=== PATIENT | female | born 1990 | race Caucasian/White ===

== ENCOUNTER 2022-04-20 05:13 | Inpatient (IN) ==
[2022-04-20] MEDS ORDERED: CITRIC ACID/SODIUM CITRATE 15 ML UDC PO SCH (06:00)
[2022-04-20] MEDS ORDERED: LACTATED RINGER'S 1,000 ML IV SCH ×2 (06:30→13:02)
[2022-04-20] MEDS ORDERED: ceFAZolin 2000MG 2,000 MG/15 ML SYR IV SCH (06:30)
[2022-04-20 06:51] LABS: Basophils # (auto) 0.02 K/uL (0-0.2); Basophils % (auto) 0.4 %; Eosinophils # (auto) 0.01 K/uL (0-0.50); Eosinophils % (auto) 0.2 %; Hematocrit (blood only) 29.3 % (34.1-44.9); Hemoglobin 9.5 g/dl (12.0-16.0); Immature Granulocytes # (auto) 0.07 K/uL (0.00-0.02); Immature Granulocytes % (auto) 1.2 %; Lymphocytes # (auto) 1.33 K/uL (1.2-3.4); Lymphocytes % (auto) 23.5 %; Mean Corpuscular Hemoglobin 28.4 pg (25.0-34.0); Mean Corpuscular Hgb Conc 32.4 g/dL (32.0-36.0); Mean Corpuscular Volume 87.5 fL (80.0-100.0); Mean Platelet Volume 11.3 fL (9.4-12.3); Monocytes # (auto) 0.48 K/uL (0.24-0.82); Monocytes % (auto) 8.5 %; Neutrophils # (auto) 3.76 K/uL (1.4-6.5); Neutrophils % (auto) 66.2 %; Platelet Count 215 K/uL (130-400); RDW Coefficient of Variation 19.3 % (11.5-14.5); RDW Standard Deviation 61.1 fL (36.4-46.3); Red Blood Count 3.35 M/uL (3.93-5.22); White Blood Count 5.67 K/ul (4.8-10.8)
--- NOTE | 2022-04-20 07:39 | Labor Progress Brief Note ---
Date of Service April 20, 2022 Subjective Patient called to notify me at 0430 of SROM at home. Came in and was evaluated by L&D RN and found to have minimal overt signs of LOF, but nitrazine of a small amount of wetness on her pad was equivocal, and amnisure was positive. She is scheduled for repeat CS on 04/24, in just a few days. Currently she has mild irregular contractions, nothing painful; good FM and no VB. She is noted to have URI symptoms which have been present since almost 8 weeks ago and has repeatedly tested COVID-negative (she is vaccinated), plus her and son are currently known positive for Parainfluenza virus per testing at their respective PCP offices. There are no new developments in her URI symptoms, which have been similar for days if not weeks at this point. Assessment & Plan (1) SROM (spontaneous rupture of membranes): Plan: Patient with confirmed ROM but not yet in active labor. Social situation currently is that her had to remain outside the delivery suite in order to provide care for their child until the patient's father could arrive from [place], [place] to provide childcare this morning. Patient does NOT want to proceed with her until the is able to join her at the hospital. Discussed that medically she is indicated for delivery, and we would typically proceed with her at this time, bumping the two scheduled deliveries that are on the books for this morning to have her go first. She would prefer to wait until arrives, accepting the risk associated with that delay. This seems reasonable given her lack of active labor, so we will proceed with the other patient's delivery and then hopefully can move forward with Selin's next. Admission and Anticipated Discharge Date Admission Date: April 20, 2022 Physical Exam Physical Exam: When I visited the patient, alert / NAD, cooperative. Sitting semi-jackson's and going through admission process with RN in room. Eyes: + anicteric sclerae Neck: normal visual inspection Respiratory: Hoarse voice noted / stuffy sounding. No witnessed cough or sneeze in the minutes we were together. Mask in place. Cardiovascular: Rate/Rhythm: regular rate and regular rhythm Gastrointestinal (Abdomen): gravid AGA Skin: no rashes, warm and dry Genitourinary: Accepted per Bertha Richard RN: ft/th/hi Amnisure positive FHT Cat 1 [place] rare mild ctx Results & Data ([facility]) Vital Signs (Past 12 Hours) Vital Signs Temp Pulse Resp BP 04/20/22 05:35 98.1 F 18 04/20/22 07:08 78 132/77 04/20/22 05:44 72 132/79 Coding Level of Care Code None Diagnoses SROM (spontaneous rupture of membranes)
[2022-04-20] MEDS ORDERED: MoRPHine SULFATE PF 1 MG/ML 10 ML AMP/VIAL ONE (09:08)
[2022-04-20] MEDS ORDERED: OXYTOCIN 10 UNITS/ML 10ML VIAL ONE (09:08)
[2022-04-20] MEDS ORDERED: fentaNYL citrate 100 MCG/2 ML VIAL ONE (09:08)
[2022-04-20] MEDS ORDERED: NALOXONE HCL 1 MG in SODIUM CHLORIDE 0.9% 1000ML 1,000 ML IV PRN (09:24)
[2022-04-20] MEDS ORDERED: ePHEDrine sulfate 50 MG/ML AMP IV PRN (09:24)
[2022-04-20] MEDS ORDERED: MoRPHine SULFATE PF 1 MG/ML 10 ML AMP/VIAL INT SPINAL ONE (09:24)
[2022-04-20] MEDS ORDERED: NALBUPHINE HCL INJ 10 MG/ML AMP IV PRN (09:24)
[2022-04-20] MEDS ORDERED: diphenhydrAMINE 50 MG/ML VIAL IV PRN (09:24)
[2022-04-20] MEDS ORDERED: ONDANSETRON INJ 2 MG/ML 2 ML VIAL IV PRN (09:24)
[2022-04-20] MEDS ORDERED: NALOXONE HCL 0.4 MG/1 ML VIAL/CARP IV PRN (09:24)
[2022-04-20] MEDS ORDERED: NALOXONE HCL 0.08 MG in SYRINGE 1.8 ML IV PRN (09:24)
[2022-04-20] MEDS ORDERED: LACTATED RINGER'S 500 ML IV PRN (09:24)
--- NOTE | 2022-04-20 09:24 | Anesthesiology Consultation ---
Date of Service April 20, 2022 Assessment & Plan ASA ASA2 Proposed Anesthesia Anesthesia Type: Spinal Risk / Benefits Reviewed With: PT / POA / Parent / Guardian, Accepts Plan and Informed Consent Obtained History Surgery Operation Date: 04/20/22 06:30 Proposed Procedures p Section in LD - Jemma Duffy MD Height/Weight Height: 5 ft 7 in Weight: 84.822 kg Allergies Allergy/AdvReac Type Severity Reaction Status Date / Time nickel AdvReac Intermediate rash Verified 04/20/22 06:48 morphine AdvReac GI upset Verified 04/20/22 06:48 Medications Home Medications Medication Instructions Recorded Confirmed Last Taken omeprazole 20 mg capsule,delayed 40 mg PO DAILY 09/11/21 04/20/22 04/19/22 release prenat.vits,david,[id number] 1 tab PO DAILY 09/11/21 04/20/22 04/19/22 NPO Date Last Intake of Fluids: 04/20/22 Time Last Intake of Fluids: 00:00 Date Last Intake of Solids: 04/20/22 Time Last Intake of Solids: 00:00 Past Medical History Medical History Anxiety Asthma History of chicken pox Hx of infertility Premenstrual dysphoric disorder Retained placenta Vasovagal syncope Exercise / Class Metabolic Activity II 4-5 Yardwork/Stairs/Walk up hill Past Family History Family History Grandmother (Paternal) Breast cancer Mother Bipolar 1 disorder Other ADD (attention deficit disorder) ADHD (attention deficit hyperactivity disorder) Narcissistic personality disorder Denies family history of Ovarian cancer Lung cancer Colorectal cancer Past Surgical History Surgical History H/O section H/O endoscopy S/P dilation and curettage for retained placenta Past Anesthesia History No Hx of Anesthesia Complications and No Family Hx of Anesthesia Complications History of PONV No Hx of PONV and No Hx of Motion Sickness Social History Smoking Status: Never smoker Hx Alcohol Use: No Hx Substance Use: No substance use type: does not use Review of Systems denies fever/cough/ colds/ chest pain/ SOB/ TRAN denies TRAN Physical Exam Vital Signs Last Vital Signs Temp 36.7 C 11/28/22 05:35 Pulse 78 04/20/22 07:08 Resp 18 04/20/22 05:35 BP 132/77 04/20/22 07:08 ENMT Mouth: no TMJ abnormality and no dentition abnormality Thyromental Distance: > or= 3.5 Finger Breadths Mallampati Class: II Neck neck extension not limited Respiratory normal respiratory effort; no respiratory distress Auscultation: lungs clear to auscultation bilaterally Cardiovascular Rate/Rhythm: regular rate and regular rhythm Neurologic moves all extremities Psychiatric Orientation: alert and oriented x 3 Testing Laboratory Results 04/20/22 06:39 Blood Type O Positive 04/20/22 06:39 Antibody Screen NEGATIVE 04/20/22 06:39
[2022-04-20] MEDS ORDERED: SODIUM CHLORIDE 0.9% 1000ML 1,000 ML IV SCH (09:30)
[2022-04-20] MEDS ORDERED: DC INTRASPINAL MORPHINE SCH (09:30)
[2022-04-20] MEDS ORDERED: NO NARCOTICS OR SEDATIVES SCH (09:30)
--- NOTE | 2022-04-20 11:02 | Post Operative Brief Note ---
PG Immediate Post Op with CF Date of Surgery April 20, 2022 Pre & Post Diagnosis Operation Date: 04/20/22 06:30 <No data on this case meets the specified criteria> Pre-op DX- Prior LTCS with SPROM and labor Post-op DX- same plus delivery of viable female infant Apgars 9&10 I identified the patient and participated in the time-out.: Yes Procedure Operation Date: 04/20/22 06:30 Actual Procedures p Section in LD Delivery of life female child at 1028(Bilateral) - Janell Larose MD, FACOG Surgeon Janell Larose MD, FACOG Principal Security Architect Anastacia Lozoya DO Estimated Blood Loss 600 Findings Consistent with Post-Op Diagnosis gravid uterus - normal tubes and ovaries bilaterally no evidence of ovarian cyst Specimens Specimen Description: A. Placenta B. Cord Blood Drains Monzon Catheter Anesthesia Type Spinal Complications none Disposition Accompanied Patient To Recovery: Yes
[2022-04-20] MEDS: KETOROLAC 30 MG/ML VIAL IV PRN ×3 (11:19→23:19)
[2022-04-20] MEDS ORDERED: PHENYLEPHRINE 100MCG/ML 5ML SYR ONE (11:32)
[2022-04-20] MEDS ORDERED: ePHEDrine sulfate 50 MG/ML SYR ONE (11:32)
--- NOTE | 2022-04-20 12:08 | Operative Report ---
PG Post Operative Report Pre & Post Diagnosis Operation Date: 04/20/22 06:30 Pre-Op Diagnosis: SROM (spontaneous rupture of membranes) Prior section requesting repeat C/S Post-Op Diagnosis: SROM (spontaneous rupture of membranes) I identified the patient and participated in the time-out.: Yes Procedure Operation Date: 04/20/22 06:30 Actual Procedures p Section in LD Delivery of life female child at 1028(Bilateral) - Janell Larose MD, FACOG Surgeon Janell Larose MD, FACOG Commissioning Specialist Anastacia Lozoya DO Estimated Blood Loss 600 Findings Consistent with Post-Op Diagnosis Uterus is gravid and consistent with a term in size. Bilateral ovaries and fallopian tubes were grossly normal. There was no evidence of an ovarian cyst present. Specimens placenta to hold Drains Monzon catheter to straight drainage- clear urine at end of case. Anesthesia Type Spinal Complications none Disposition Accompanied Patient To Recovery: Yes Indications Patient is a 31-year-old 2 para 1-0-0-1 female EDC of 04/28/2022 with a prior section who presents with spontaneous rupture of membranes at approximately 0400 hrs today. She was scheduled for repeat section April 24. Patient is still requesting repeat section and we will proceed at this time. Procedure and its risks were reviewed with the patient and all questions were answered to her satisfaction. Description of Procedure After the patient received adequate subarachnoid block she was prepped and draped in usual sterile fashion. A low transverse skin incision was made through her prior scar and carried to the fascia with the same scalpel. The fascial incision was then extended with Rowley scissors in transverse fashion. The edges were then grasped with Grzegorz clamps and the underlying rectus muscles bluntly sharply dissected off of the overlying fascia. The rectus muscle were then bluntly divided along the midline and the underlying peritoneum elevated and entered bluntly. The bladder was then taken down off the anterior surface of the uterus and placed behind the bladder blade. The lower uterine segment was entered with a scalpel and extended transversely by stretching the incision in a cephalad and caudad direction. Membranes were ruptured for clear fluid. The infant was delivered from the vertex presentation with moderate fundal pressure. The female was vigorous and crying upon delivery. After the cord was clamped and cut, she was handed off to Dr. Lozano who was attendance as sample cutter. The placenta was then manually removed with a three-vessel cord. The uterus was exteriorized and covered with a clean lap sponge. The uterine cavity was then explored found to be free of any placental tissue or membranes. The uterus was then closed in a running locking imbricating fashion with 0 Monocryl suture. Hemostasis was noted to be excellent on the uterine incision. The posterior cul-de-sac was suctioned for small amount of bloody fluid. After noting that the uterine incision continued to have excellent hemostasis, the uterus was placed back inside the abdominal cavity. The gutters were explored found to be free of any clot or fluid. The uterine incision continued to have excellent hemostasis. The rectus muscles were then brought together on the midline with individual stitches of 0 Monocryl. The fascia was closed in a running fashion with 0 Vicryl. After irrigating the adipose layer, the skin edges were reapproximated doing a subcuticular stitch with 3-0 Vicryl. Urine was clear at the end of the case. mother and were stable upon arrival back in labor and delivery for recovery. I attest to the content of the Intraoperative Record and any orders documented therein. Any exceptions are noted below. OB Procedure Charges 70617
[2022-04-20] MEDS: HYDROmorphone INJ 0.5 MG/0.5 ML SYR IV PRN ×2 (12:22→13:41)
[2022-04-20] MEDS ORDERED: BENZOCAINE 20% AER SPR 82.5 GM CAN EXT PRN (13:02)
[2022-04-20] MEDS ORDERED: HYDROCORTISONE ACETATE 25 MG SUPP PR PRN (13:02)
[2022-04-20] MEDS ORDERED: MAGNESIUM HYDROXIDE SUSP 30 ML UDC PO PRN (13:02)
[2022-04-20] MEDS ORDERED: DIPHTHERIA/TETANUS/PERTUSSIS 0.5 ML SYR/VIAL IM ONE (13:02)
[2022-04-20] MEDS ORDERED: SENNA 8.6 MG TAB PO PRN (13:02)
[2022-04-20] MEDS ORDERED: ACETAMINOPHEN 1,000 MG/100 ML VIAL IV PRN (13:02)
[2022-04-20] MEDS: OXYTOCIN 20 UNITS in LACTATED RINGER'S 1,000 ML IV SCH ×2 (13:36→21:14)
--- NOTE | 2022-04-20 13:41 | Anesthesiology Progress Note ---
Date of Service April 20, 2022 Anesthesia Post Procedure Vital Signs Vital Signs: Temp Pulse Resp BP Pulse Ox 04/20/22 12:15 64 16 150/72 H 97 04/20/22 12:05 62 16 132/75 98 04/20/22 11:55 67 16 128/64 99 04/20/22 11:45 68 16 124/60 98 04/20/22 11:35 70 18 124/59 L 99 04/20/22 11:25 70 18 128/62 98 04/20/22 11:15 36.4 C L 74 16 126/61 96 04/20/22 05:35 36.7 C 18 04/20/22 13:17 64 98 04/20/22 13:16 64 139/75 04/20/22 13:12 96 04/20/22 13:12 73 04/20/22 13:12 72 93 04/20/22 13:07 66 96 04/20/22 13:06 67 118/71 04/20/22 13:02 59 L 97 04/20/22 12:57 66 98 04/20/22 12:55 64 138/69 04/20/22 12:52 68 99 04/20/22 12:47 65 96 04/20/22 12:45 67 125/64 04/20/22 12:42 68 96 04/20/22 12:37 61 96 04/20/22 12:35 64 130/72 04/20/22 12:32 67 96 04/20/22 12:30 76 94 04/20/22 12:27 69 96 04/20/22 12:25 64 134/72 04/20/22 12:22 67 97 04/20/22 12:17 58 L 97 04/20/22 12:15 64 150/72 H 04/20/22 12:12 62 96 04/20/22 12:07 64 97 04/20/22 12:06 66 132/75 04/20/22 12:02 66 98 04/20/22 11:57 63 97 04/20/22 11:55 64 128/64 04/20/22 11:52 60 96 04/20/22 11:47 64 99 04/20/22 11:45 62 124/60 04/20/22 11:42 68 98 04/20/22 11:37 66 100 04/20/22 11:35 71 124/59 L 04/20/22 11:32 71 99 04/20/22 11:29 64 122/61 04/20/22 11:27 64 128/62 97 04/20/22 11:26 71 115/55 L 04/20/22 11:23 65 94 04/20/22 11:22 72 96 04/20/22 11:17 79 96 04/20/22 11:16 76 124/56 L 04/20/22 11:15 73 126/61 04/20/22 11:12 71 97 04/20/22 11:11 77 94 04/20/22 11:07 85 95 04/20/22 11:05 85 127/61 04/20/22 09:36 79 109/63 04/20/22 07:08 78 132/77 04/20/22 05:44 72 132/79 Pain Intensity Lower Medial Abdomen: Pain Intensity: 5 Transfer of Care Handoff Completed per policy Notes Mental Status: alert / awake / arousable and participated in evaluation Patient Amnestic to Procedure: Yes Nausea / Vomiting: adequately controlled Pain: adequately controlled Airway Patency, RR, SpO2: stable & adequate BP & HR: stable & adequate Hydration State: stable & adequate Anesthetic Complications: no major complications apparent and Pt Satisfied with anesthetic care
[2022-04-20] MEDS: SIMETHICONE 80 MG CHEW PO SCH ×3 (15:33→20:12)
[2022-04-20] MEDS: DOCUSATE SODIUM 100 MG CAP PO SCH (20:12)
[2022-04-21] MEDS ORDERED: KETOROLAC 30 MG/ML VIAL IV PRN (03:25)
[2022-04-21] MEDS ORDERED: MEPERIDINE HCL 50 MG/ML CARP IV PRN (03:25)
[2022-04-21] MEDS ORDERED: PROMETHAZINE HCL 25 MG in SODIUM CHLORIDE 0.9% 50 ML IV PRN (03:25)
[2022-04-21] MEDS ORDERED: diphenhydrAMINE Capsule 25 MG CAP PO PRN (03:25)
[2022-04-21] MEDS ORDERED: ONDANSETRON INJ 2 MG/ML 2 ML VIAL IV PRN (03:25)
[2022-04-21] MEDS ORDERED: diphenhydrAMINE 50 MG/ML VIAL IV PRN (03:25)
[2022-04-21] MEDS: IBUPROFEN 600 MG TAB PO PRN ×5 (04:01→22:00)
[2022-04-21 07:09] LABS: Basophils # (auto) 0.01 K/uL (0-0.2); Basophils % (auto) 0.1 %; Eosinophils # (auto) 0.02 K/uL (0-0.50); Eosinophils % (auto) 0.2 %; Hematocrit (blood only) 27.4 % (34.1-44.9); Hemoglobin 9.1 g/dl (12.0-16.0); Immature Granulocytes # (auto) 0.08 K/uL (0.00-0.02); Immature Granulocytes % (auto) 0.9 %; Lymphocytes # (auto) 1.47 K/uL (1.2-3.4); Lymphocytes % (auto) 15.8 %; Mean Corpuscular Hemoglobin 28.6 pg (25.0-34.0); Mean Corpuscular Hgb Conc 33.2 g/dL (32.0-36.0); Mean Corpuscular Volume 86.2 fL (80.0-100.0); Mean Platelet Volume 11.3 fL (9.4-12.3); Monocytes # (auto) 0.61 K/uL (0.24-0.82); Monocytes % (auto) 6.6 %; Neutrophils # (auto) 7.09 K/uL (1.4-6.5); Neutrophils % (auto) 76.4 %; Platelet Count 191 K/uL (130-400); RDW Coefficient of Variation 18.8 % (11.5-14.5); RDW Standard Deviation 58.8 fL (36.4-46.3); Red Blood Count 3.18 M/uL (3.93-5.22); White Blood Count 9.28 K/ul (4.8-10.8)
--- NOTE | 2022-04-21 07:09 | Obstetrical Progress Note ---
Date of Service <Leodan AsencioElisa Benedict DO - Last Filed: 04/21/22 07:59> April 21, 2022 Assessment & Plan <Leodan AsencioElisa Benedict DO - Last Filed: 04/21/22 07:59> (1) S/P section: - Feels well today. Eating well, voiding well, ambulating well. - Pain well controlled with ibuprofen 600mg Q4H PRN - Routine care -- OOB, ambulation, diet progression as tolerated - After discharge will have 6 week follow-up with Dr. Lezama - Patient is having some heartburn with shoulder pain which could represent pneumoperitoneum that is pressing on a nerve. This should resolve with time. If pain gets worse or continues then imaging may be needed at that time. (2) Cough: -Patient has been having a URI for some time that has improved since deilvery. -Will continue to monitor. No intervention needed at this time. Should f/u with PCP after D/C if cough persists. <Janell Larose MD, FACOG - Last Filed: 04/21/22 08:10> (1) S/P section: (2) Cough: Subjective <Leodan AsencioElisa Benedict DO - Last Filed: 04/21/22 07:59> Ambulation: ambulating normally Voiding: no voiding problems Passing Gas:: Yes Diet Tolerance:: regular diet Lochia:: Small Feeding Type:: breast feeding Current Pain Level(1-10): 4 Patient is a 31 y/o female who is POD #1 following delivery at 38 weeks and 6 days. She reports feeling well overall this morning. Mild abdominal cramping & 5/10 pain well managed on analgesics. Voiding well. Tolerating meals overnight and able to ambulate some. Able to pass gas and has not had a bowel movement yet. Has some persistent lochia with some improvement this morning. Currently breast feeding. Patient has been having a cough for the past 8 weeks that has been improving since delivery. She also complains of R shoulder pain and heartburn that has been happening since delivery. Review of Systems Denies fever, chills, sweats Denies shortness of breath, difficulty breathing, chest pain, palpitations, chest pressure. +cough +heartburn Denies breast pain. Denies dysuria. Denies headache or changes in vision. Physical Exam <Leodan Benedict DO - Last Filed: 04/21/22 07:59> General: Alert, oriented. No acute distress. Cardiac: Regular rate and rhythm, no murmurs/rubs/gallops. Respiratory: Clear to auscultation bilaterally a/p, no wheezes/rales/rhonchi. No increased work of breathing. Symmetrical chest rise. No respiratory distress. Abdomen: Soft, nontender, nondistended. Bowel sounds present. Uterus: Uterine fundus firm, palpable 3 cm below umbilicus. Lower Extremities: No lower extremity edema or swelling. No deep calf pain. Sobeida's negative bilaterally. Results & Data ([facility]) <Leodan Benedict DO - Last Filed: 04/21/22 07:59> Vital Signs (Past 12 Hours) Vital Signs Temp Pulse Resp BP Pulse Ox O2 Del Method 04/21/22 03:25 36.9 C 76 18 115/75 94 Room Air 04/21/22 03:25 18 94 04/21/22 02:17 18 94 04/21/22 01:10 18 95 04/21/22 00:15 16 97 04/20/22 23:29 16 97 04/20/22 23:29 36.9 C 61 16 143/87 H 97 Room Air 04/20/22 22:05 16 95 04/20/22 21:05 16 97 04/20/22 20:08 16 97 04/20/22 19:12 36.6 C 90 18 133/86 96 Room Air 04/20/22 19:12 Room Air 04/20/22 19:12 18 96 <Janell Larose MD, FACOG - Last Filed: 04/21/22 08:10> Co-Signing Physician Notes Resident Physician Supervision Note: I interviewed and examined the patient. Discussed with Dr. Benedict and agree with findings and plan as documented in the note. Any exceptions or clarifications are listed here:Dressing removed and incision noted to be dry and intact. Documented By: Janell Larose MD, FACOG Resident Activity Tracking <Leodan Benedict DO - Last Filed: 04/21/22 07:59> Resident Involvement: Resident Care Provided Care Provided: OB Delivery
[2022-04-21] MEDS: oxyCODONE/ACETAMINOPHEN 5mg/325mg TAB PO PRN ×4 (08:39→21:59)
[2022-04-21] MEDS: PRENATAL VITAMIN 1 TAB PO SCH (08:39)
[2022-04-21] MEDS: SIMETHICONE 80 MG CHEW PO SCH ×4 (08:39→20:52)
[2022-04-21] MEDS: FERROUS SULFATE 325 MG TAB PO SCH (08:39)
[2022-04-21] MEDS: DOCUSATE SODIUM 100 MG CAP PO SCH ×2 (08:40→20:52)
[2022-04-21] MEDS ORDERED: bisacodyL 5 MG TABEC PO SCH (20:00)
[2022-04-22] MEDS: oxyCODONE/ACETAMINOPHEN 5mg/325mg TAB PO PRN ×3 (02:45→11:53)
[2022-04-22] MEDS: IBUPROFEN 600 MG TAB PO PRN ×3 (02:45→11:53)
--- NOTE | 2022-04-22 07:16 | Obstetrical Progress Note ---
Date of Service <eLodan AsencioElisa Benedict DO - Last Filed: 04/22/22 08:26> April 22, 2022 Assessment & Plan <Leodan AsencioElisa Benedict DO - Last Filed: 04/22/22 08:26> (1) S/P section: - Feels well today. Eating well, voiding well, ambulating well. - Pain well controlled with ibuprofen 600mg Q4H PRN - Routine care -- OOB, ambulation, diet progression as tolerated - After discharge will have 6 week follow-up with Dr. Lezama - Will be D/C today (2) Cough: -Patient has been having a URI for some time that has improved since deilvery. -Will continue to monitor. No intervention needed at this time. Should f/u with PCP after D/C if cough persists. <Nikita Huang MD - Last Filed: 04/23/22 14:43> (1) S/P section: (2) Cough: Subjective <Leodan Eveline Benedict DO - Last Filed: 04/22/22 08:26> Ambulation: ambulating normally Voiding: no voiding problems Passing Gas:: Yes Diet Tolerance:: regular diet Lochia:: Small Feeding Type:: breast feeding Current Pain Level(1-10): 3 Patient is a 31 y/o female who is POD #2 following delivery at 38 weeks and 6 days. She reports feeling well overall this morning. Mild abdominal cramping & 3/10 pain well managed on analgesics. Voiding well. Tolerating meals overnight and able to ambulate some. Able to pass gas and has not had a bowel movement yet. Has some persistent lochia with some improvement this morning. Currently breast feeding. Review of Systems Denies fever, chills, sweats Denies shortness of breath, difficulty breathing, chest pain, palpitations, chest pressure. Denies breast pain. Denies dysuria. Denies headache or changes in vision. Physical Exam <Leodan Eveline Benedict DO - Last Filed: 04/22/22 08:26> General: Alert, oriented. No acute distress. Cardiac: Regular rate and rhythm, no murmurs/rubs/gallops. Respiratory: Clear to auscultation bilaterally a/p, no wheezes/rales/rhonchi. No increased work of breathing. Symmetrical chest rise. No respiratory distress. Abdomen: Soft, nontender, nondistended. Bowel sounds present. Uterus: Uterine fundus firm, palpable 3 cm below umbilicus. Lower Extremities: No lower extremity edema or swelling. No deep calf pain. Sobeida's negative bilaterally. Results & Data ([facility]) <Leodan Benedict DO - Last Filed: 04/22/22 08:26> Vital Signs (Past 12 Hours) Vital Signs Temp Pulse Resp BP Pulse Ox O2 Del Method 04/21/22 23:15 36.7 C 69 18 122/72 96 Room Air <Nikita Huang MD - Last Filed: 04/23/22 14:43> Co-Signing Physician Notes Patient seen and evaluated with resident and agree with the findings and plan. Stable for discharge. Resident Activity Tracking <Leodan Benedict DO - Last Filed: 04/22/22 08:26> Resident Involvement: Resident Care Provided Care Provided: OB Delivery
[2022-04-22 07:35] LABS: Hematocrit (blood only) 28.3 % (34.1-44.9); Hemoglobin 9.1 g/dl (12.0-16.0)
[2022-04-22] MEDS: PRENATAL VITAMIN 1 TAB PO SCH (08:26)
[2022-04-22] MEDS: SIMETHICONE 80 MG CHEW PO SCH ×2 (08:26→11:54)
[2022-04-22] MEDS: DOCUSATE SODIUM 100 MG CAP PO SCH (08:27)
[2022-04-22] MEDS: FERROUS SULFATE 325 MG TAB PO SCH (08:27)
[2022-04-22] MEDS ORDERED: bisacodyL 10 MG SUPP PR PRN (10:55)
--- NOTE | 2022-04-24 09:42 | Discharge Summary (DS) ---
DATE OF ADMISSION: 04/20/2022. DATE OF DISCHARGE: 04/22/2022. PRINCIPAL DIAGNOSIS: Intrauterine at term, spontaneous rupture of membranes, prior section, requesting repeat section. PRINCIPAL PROCEDURE: Repeat low transverse section. HISTORY: The patient is a 31-year-old 2, para 1-0-0-1 female, EDC of 04/28/2022, who had a prior section presents with spontaneous rupture of membranes early in the morning of her admission. She had been scheduled for repeat section on 04/24/2022. Because of the rupture of membranes and the onset of labor, we proceeded with repeat section on 04/20/2022. This surgery was done without any complications. She did have some right shoulder pain on her first postop day; however, this resolved. She remained afebrile throughout her hospital stay. She was ambulating, voiding and eating without difficulty. Pain meds were working well for her incisional pain. Hemoglobin on admission was 9.5, hematocrit of 29.3. First postop day hemoglobin 9.1, hematocrit 27.4. Second postop day hemoglobin 9.1, hematocrit of 28.3. She was sent home in good condition with a prescription for Percocet 1-2 tablets p.o. q.4 hours p.r.n. pain, Motrin 600 mg p.o. q.4 hours p.r.n. pain. She is to call for temperature of 101 degrees or higher, heavy vaginal bleeding, burning with urination, increased redness, drainage or pain in her incision, calf tenderness, shortness of breath or any other concerns. She is to see in the office in 6 weeks for and postop visit. Job ID: [id number] [facility]
== END 2022-04-22 13:45 | disposition home or self-care (01) | DRG 788 ==
LOC: OPB 05:13 → 4S1 05:16 → 4E2 13:47